=== PATIENT | male | born 1945 | race Caucasian/White ===

== ENCOUNTER 2018-02-22 14:44 | Inpatient (IN) | payer MEDICARE, BC ==
[~2018-02-22] VITALS: Ht 182.9 cm; Wt 95.4 kg
[2018-02-22 15:04] VITALS: BP 156/83; PULSE 87; RESP 16; TEMP 97.1; O2SAT 100
--- NOTE | 2018-02-22 15:44 | RADRPT ---
EXAM DATE/TIME: 02/22/2018 15:26 [facility] COMPARISON: No previous studies available for comparison. INDICATIONS : Pre op right hip. Evalaute for pneumothorax, pneumonia, or communicable diseases. MEDICAL HISTORY : Hypertension. SURGICAL HISTORY : None. ENCOUNTER: Initial ACUITY: 1 day PAIN SCORE: 0/10 LOCATION: Bilateral chest FINDINGS: PA and lateral views of the chest demonstrate the lungs to be symmetrically aerated without evidence of mass, infiltrate or effusion. The cardiomediastinal contours are unremarkable. Osseous structure s are intact. A small apparent retrocardiac hiatal hernia is present and CONCLUSION: No acute disease. Small apparent retrocardiac hiatal hernia. Casper Lorenzana MD on February 22, 2018 at 15:40 Board Certified Radiologist. This report was verified electronically.
[2018-02-22 16:26] LABS: AUTOMATED NEUTROPHIL # 5.5 TH/MM3 (1.8-7.7); BASOPHIL % 0.6 % (0.0-2.0); EOSINOPHIL # 0.3 TH/MM3 (0-0.4); EOSINOPHIL % 4.1 % (0.0-4.0); HEMATOCRIT 37.6 % (39.0-51.0); HEMOGLOBIN 12.7 GM/DL (13.0-17.0); LYMPH % 16.1 % (9.0-44.0); LYMPHOCYTE # 1.3 TH/MM3 (1.0-4.8); MEAN CELL VOLUME 92.9 FL (80.0-100.0); MEAN CORPUSCULAR HEMOGLOBIN 31.3 PG (27.0-34.0); MEAN CORPUSCULAR HGB CONC 33.7 % (32.0-36.0); MONO % 8.4 % (0.0-8.0); MONOCYTE # 0.7 TH/MM3 (0-0.9); NEUT % 70.8 % (16.0-70.0); PLATELET COUNT 251 TH/MM3 (150-450); RED BLOOD COUNT 4.04 MIL/MM3 (4.50-5.90); RED CELL DISTRIBUTION WIDTH 13.3 % (11.6-17.2); WHITE BLOOD COUNT 7.8 TH/MM3 (4.0-11.0)
[2018-02-22 16:27] LABS: INTERNATIONAL NORMALIZED RATIO 1.1 RATIO
[2018-02-22 16:34] LABS: ALBUMIN 3.3 GM/DL (3.4-5.0); AST (GOT) 18 U/L (15-37); BICARBONATE 25.5 MEQ/L (21.0-32.0); BLOOD UREA NITROGEN 41 MG/DL (7-18); CALCIUM 9.9 MG/DL (8.5-10.1); CHLORIDE 106 MEQ/L (98-107); CREATININE 2.04 MG/DL (0.60-1.30); GLOMERULAR FILTRATION RATE 32 ML/MIN (>89); GLUCOSE,RANDOM 91 MG/DL (74-106); SODIUM (NA) 140 MEQ/L (136-145)
[2018-02-22 16:38] LABS: ALKALINE PHOSPHATASE 115 U/L (45-117); ALT (GPT) 51 U/L (12-78); TOTAL BILIRUBIN ADULT 0.8 MG/DL (0.2-1.0); TOTAL PROTEIN 7.4 GM/DL (6.4-8.2)
--- NOTE | 2018-02-22 17:14 | RADRPT ---
EXAM DATE/TIME: 02/22/2018 16:24 1 [facility] COMPARISON: No previous studies available for comparison. INDICATIONS : Patient fell ten days ago injuring right hip. Evaluate for right hip fracture. RADIATION DOSE: 57.08 CTDIvol (mGy) MEDICAL HISTORY : None SURGICAL HISTORY : None. ENCOUNTER: Initial ACUITY: 2 weeks PAIN SCALE: 10/10 LOCATION: Right hip TECHNIQUE: Volumetric scanning of the hip was performed. Using automated exposure control and adjustment of the mA and/or kV according to patient size, radiation dose was kept as low as reasonably achievable to o btain optimal diagnostic quality images. DICOM format image data is available electronically for rev iew and comparison. FINDINGS: There is a mildly impacted right subcapital hip fracture with mild medial displacement of the he ad fragment. The acetabulum is intact. There is a nondisplaced fracture through the lesser trochanter . The pubic rami are intact. There is mild soft tissue swelling and evidence of joint effusion. There is diffuse osteopenia. CONCLUSION: Mildly impacted right subcapital hip fracture. There is a nondisplaced fracture throu gh the lesser trochanter as well. Casper Lorenzana MD on February 22, 2018 at 17:09 Board Certified Radiologist. This report was verified electronically.
[2018-02-22] MEDS ORDERED: MORPHINE SULFATE 4 MG/ML INJ IV PUSH ONE ×2 (17:15→18:30)
[2018-02-22] MEDS ORDERED: ONDANSETRON HCL 4 MG/2 ML VIAL IV PUSH ONE (17:15)
[2018-02-22 17:25] VITALS: BP 165/95; PULSE 75; RESP 16; O2SAT 100
--- NOTE | 2018-02-22 17:41 | PD ---
HPI . Hip injury Chief Complaint: Hip Injury Time Seen by Provider: 17:10 Travel History International Travel<30 days: No Contact w/Intl Traveler<30days: No Traveled to known affect area: No History of Present Illness HPI This patient presents with a chief complaint of right hip injury. He fell while trying to assist his with movement about 10 days ago and landed on the right hip. He has had pain in his hip since that time. He made an appointment with his primary care provider for today who ordered outpatient x- rays. X-rays were positive for a hip fracture. He was subsequently sent to us for further evaluation, admission and definitive treatment. Pain has been constant and is currently rated 10/10. Pain is exacerbated by palpation. PFSH Past Medical History Hx Anticoagulant Therapy: Yes (ASA) Social History Tobacco Use: No Allergies-Medications (Allergen,Severity, Reaction): Coded Allergies: No Known Allergies (Unverified , 02/22/18) Reported Meds & Prescriptions Reported Meds & Active Scripts Active Reported Sodium Bicarbonate 650 Mg Tab 650 Mg PO QID Lipitor (Atorvastatin Calcium) 10 Mg Tab 10 Mg PO HS Tamsulosin (Tamsulosin HCl) 0.4 Mg Cap 0.4 Mg PO HS Levothyroxine (Levothyroxine Sodium) 50 Mcg Tab 50 Mcg PO DAILY Timoptic Opth Drops (Timolol Opth Drops) 0.25 % Soln 1 Drop LEFT EYE BID Claritin (Loratadine) 10 Mg Tablet 10 Mg PO DAILY Men's Multi-Vitamin (Multivitamin) 1 Each Tablet 1 Tab PO DAILY Fiber (Calcium Polycarbophil) 625 Mg Tab 625 Mg PO DAILY Aspirin Adult Low Strength (Aspirin) 81 Mg Tabdr 81 Mg PO DAILY Uloric (Febuxostat) 40 Mg Tab 40 Mg PO DAILY Verapamil ER (Verapamil HCl) 120 Mg Tab 120 Mg PO DAILY Fosinopril (Fosinopril Sodium) 20 Mg Tab 20 Mg PO DAILY Review of Systems Except as stated in HPI: all other systems reviewed are Neg Physical Exam Narrative GENERAL: Awake and alert and in no acute distress. SKIN: Warm and dry. HEAD: Normocephalic/atraumatic. EYES: Pupils are equal. Extraocular movements are intact. NECK: Normal range of motion. RESPIRATORY: Nonlabored respirations. MUSCULOSKELETAL: Right hip is tender in the groin and over the greater trochanter. There is no pain with logrolling of the hip. The leg is not shortened or malrotated. He has peripheral edema. NEUROLOGICAL: Nonfocal. PSYCHIATRIC: Appropriate mood and affect. Data Data Last Documented VS Vital Signs Date Time Temp Pulse Resp B/P (MAP) Pulse Ox O2 Delivery O2 Flow Rate FiO2 02/22/18 17:25 75 16 165/95 (118) 100 Room Air 02/22/18 15:[address] Hip W/O Contrast (02/22/18 ) Complete Blood Count With Diff (02/22/18 15:07) Comprehensive Metabolic Panel (02/22/18 15:07) Coag Profile (02/22/18 15:07) Chest, Pa & Lat (02/22/18 ) Electrocardiogram (02/22/18 ) Morphine Inj (Morphine Inj) (02/22/18 17:15) Ondansetron Inj (Zofran Inj) (02/22/18 17:15) Morphine Inj (Morphine Inj) (02/22/18 18:30) Consult Orthopedic (02/22/18 ) Place In Observation (02/22/18 ) Vital Signs (Adult) Q4H (02/22/18 18:26) Activity Bed Rest (02/22/18 18:26) Auto Body Service Mechanic / Telemetry .CONTINUOUS (02/22/18 18:26) Diet Npo (02/22/18 Dinner) Sodium Chloride 0.9% Flush (Ns Flush) (02/22/18 18:30) Sodium Chloride 0.9% Flush (Ns Flush) (02/22/18 21:00) Ondansetron Inj (Zofran Inj) (02/22/18 18:30) Basic Metabolic Panel (Bmp) (02/23/18 06:00) Complete Blood Count With Diff (02/23/18 06:00) Pt Request For Service (02/22/18 18:26) Case Management Consult (02/22/18 18:26) Naloxone Inj (Narcan Inj) (02/22/18 18:30) Morphine Inj (Morphine Inj) (02/22/18 18:30) Admit Order (Ed Use Only) (02/22/18 18:27) Labs Laboratory Tests Test 02/22/18 15:42 White Blood Count 7.8 TH/MM3 Red Blood Count 4.04 MIL/MM3 Hemoglobin 12.7 GM/DL Hematocrit 37.6 % Mean Corpuscular Volume 92.9 FL Mean Corpuscular Hemoglobin 31.3 PG Mean Corpuscular Hemoglobin Concent 33.7 % Red Cell Distribution Width 13.3 % Platelet Count 251 TH/MM3 Mean Platelet Volume 9.0 FL Neutrophils (%) (Auto) 70.8 % Lymphocytes (%) (Auto) 16.1 % Monocytes (%) (Auto) 8.4 % Eosinophils (%) (Auto) 4.1 % Basophils (%) (Auto) 0.6 % Neutrophils # (Auto) 5.5 TH/MM3 Lymphocytes # (Auto) 1.3 TH/MM3 Monocytes # (Auto) 0.7 TH/MM3 Eosinophils # (Auto) 0.3 TH/MM3 Basophils # (Auto) 0.0 TH/MM3 CBC Comment DIFF FINAL Differential Comment Prothrombin Time 11.0 SEC Prothromb Time International Ratio 1.1 RATIO Activated Partial Thromboplast Time 26.4 SEC Blood Urea Nitrogen 41 MG/DL Creatinine 2.04 MG/DL Random Glucose 91 MG/DL Total Protein 7.4 GM/DL Albumin 3.3 GM/DL Calcium Level 9.9 MG/DL Alkaline Phosphatase 115 U/L Aspartate Amino Transf (AST/SGOT) 18 U/L Alanine Aminotransferase (ALT/SGPT) 51 U/L Total Bilirubin 0.8 MG/DL Sodium Level 140 MEQ/L Potassium Level 4.3 MEQ/L Chloride Level 106 MEQ/L Carbon Dioxide Level 25.5 MEQ/L Anion Gap 9 MEQ/L Estimat Glomerular Filtration Rate 32 ML/MIN MDM Medical Decision Making Medical Screen Exam Complete: Yes Emergency Medical Condition: Yes Differential Diagnosis Differential diagnosis of extremity trauma includes but is not limited to fracture, sprain or strain, dislocation, contusion Narrative Course Patient presents to us for further evaluation of a known right hip fracture. CT>> There is a mildly impacted right subcapital hip fracture with mild medial displacement of the head fragment. The acetabulum is intact. There is a nondisplaced fracture through the lesser trochanter. The pubic rami are intact. There is mild soft tissue swelling and evidence of joint effusion. There is diffuse osteopenia. The patient's pain has been treated with morphine and his nausea with Zofran. Arrangements will be made for this patient to be admitted to the hospital for treatment of this injury. Diagnosis Primary Impression: Closed right hip fracture Qualified Codes: S72.001A - Fracture of unspecified part of neck of right femur, initial encounter for closed fracture Admitting Information Admitting Physician Requests: Admit Scripts Rivaroxaban (Xarelto) 10 Mg Tab 10 MG PO DAILY for Blood Clot Prevention, #14 TAB 0 Refills Prov: Shady Chand/It Desktop Support Specialist PA 02/24/18 Hydrocodone-Acetaminophen (Hydrocodone-Acetaminophen) 10-325 mg Tab 1 TAB PO Q4H Y for PAIN, #40 TAB 0 Refills Prov: Shady Chand/It Desktop Support Specialist PA 02/24/18 Condition: Stable Ariadna Rose MD Feb 22, 2018 17:41
[2018-02-22] MEDS ORDERED: ASPI81TA16 PO (18:02)
[2018-02-22] MEDS ORDERED: FOSI20TA PO (18:02)
[2018-02-22] MEDS ORDERED: FIBE625T10 PO (18:02)
[2018-02-22] MEDS ORDERED: MULT-267 PO (18:02)
[2018-02-22] MEDS ORDERED: VERA1TAB9 PO (18:02)
[2018-02-22] MEDS ORDERED: ULOR40TA PO (18:02)
[2018-02-22] MEDS ORDERED: LIPI10TA PO (18:16)
[2018-02-22] MEDS ORDERED: LEVO50TA4 PO (18:16)
[2018-02-22] MEDS ORDERED: SODI650T PO (18:16)
[2018-02-22] MEDS ORDERED: CLAR10TA7 PO (18:16)
[2018-02-22] MEDS ORDERED: TIMO0.255 LEFT EYE (18:16)
[2018-02-22] MEDS ORDERED: TAMS0.4C4 PO (18:16)
[2018-02-22] MEDS ORDERED: MORPHINE SULFATE 2 MG/ML INJ IV PUSH PRN (18:30)
[2018-02-22] MEDS ORDERED: SODIUM CHLORIDE 0.9% FLUSH 10 ML FLUSH IV FLUSH PRN (18:30)
[2018-02-22] MEDS ORDERED: NALOXONE HCL 0.4 MG/ML AMP IV PUSH PRN (18:30)
[2018-02-22] MEDS ORDERED: ONDANSETRON HCL 4 MG/2 ML VIAL IVP PRN (18:30)
--- NOTE | 2018-02-22 19:58 | HHI.HP ---
[facility] Evie Gomes MD Admission Diagnosis right hip fx Diagnoses: Travel History International Travel<30 Days: No Contact w/Intl Traveler <30 Da: No Traveled to Known Affected Are: No History of Present Illness 42-year-old male with a past medical history significant for hypertension, chronic kidney disease and BPH presents to the emergency department for evaluation of a fall. Approximately 10 days ago he was helping his , who has muscular dystrophy, get out of bed when he fell while attempting to move her onto his right hip, knee and arm. The patient reports that his right knee and right arm are doing much better however he still has significant pain in his right hip. Patient was seen by his primary care provider today who sent him for outpatient x-rays which were positive for right hip fracture. He was sent to the emergency department for further evaluation. Currently he complains of significant right hip pain. Denies any chest pain or shortness of breath. No nausea/vomiting/diarrhea. No abdominal pain. Patient has bilateral lower extremity pitting edema which she has had for approximately the past 2-3 months and has had outpatient workup for. He reports the edema is worse than normal because he has not been able to lie flat for the past 10 days. Review of Systems Except as stated in HPI: all other systems reviewed are Neg Past Family Social History Past Medical History Hypertension chronic kidney disease BPH Past Surgical History None Reported Medications Reported Meds & Active Scripts Active Reported Sodium Bicarbonate 650 Mg Tab 650 Mg PO QID Lipitor (Atorvastatin Calcium) 10 Mg Tab 10 Mg PO HS Tamsulosin (Tamsulosin HCl) 0.4 Mg Cap 0.4 Mg PO HS Levothyroxine (Levothyroxine Sodium) 50 Mcg Tab 50 Mcg PO DAILY Timoptic Opth Drops (Timolol Opth Drops) 0.25 % Soln 1 Drop LEFT EYE BID Claritin (Loratadine) 10 Mg Tablet 10 Mg PO DAILY Men's Multi-Vitamin (Multivitamin) 1 Each Tablet 1 Tab PO DAILY Fiber (Calcium Polycarbophil) 625 Mg Tab 625 Mg PO DAILY Aspirin Adult Low Strength (Aspirin) 81 Mg Tabdr 81 Mg PO DAILY Uloric (Febuxostat) 40 Mg Tab 40 Mg PO DAILY Verapamil ER (Verapamil HCl) 120 Mg Tab 120 Mg PO DAILY Fosinopril (Fosinopril Sodium) 20 Mg Tab 20 Mg PO DAILY Allergies: Coded Allergies: No Known Allergies (Unverified , 02/22/18) Family History Negative for CAD/DM Social History Denies tobacco. Occasional alcohol. Denies illicit drugs. Physical Exam Vital Signs Vital Signs Date Time Temp Pulse Resp B/P (MAP) Pulse Ox O2 Delivery O2 Flow Rate FiO2 02/22/18 17:25 75 16 165/95 (118) 100 Room Air 02/22/18 17:25 100 Room Air 02/22/18 15:04 97.1 87 16 156/83 (107) 100 Physical Exam GENERAL: Elderly, male lying in bed SKIN: No rashes, ecchymoses or lesions. Cool and dry. HEAD: Atraumatic. Normocephalic. No temporal or scalp tenderness. EYES: Pupils equal round and reactive. Extraocular motions intact. No scleral icterus. No injection or drainage. ENT: Nose without bleeding, purulent drainage or septal hematoma. Throat without erythema, tonsillar hypertrophy or exudate. Uvula midline. Airway patent. NECK: Trachea midline. No JVD or lymphadenopathy. Supple, nontender, no meningeal signs. CARDIOVASCULAR: Regular rate and rhythm without murmurs, gallops, or rubs. RESPIRATORY: Clear to auscultation. Breath sounds equal bilaterally. No wheezes , rales, or rhonchi. GASTROINTESTINAL: Abdomen soft, non-tender, nondistended. No hepato-splenomegaly , or palpable masses. No guarding. MUSCULOSKELETAL: Right lower extremity neurovascularly intact. 2+ pulses. 2+ bilateral lower extremity pitting edema. NEUROLOGICAL: Awake and alert. Cranial nerves II through XII intact. Motor and sensory grossly within normal limits. Normal speech. Laboratory Laboratory Tests Test 02/22/18 15:42 White Blood Count 7.8 Red Blood Count 4.04 Hemoglobin 12.7 Hematocrit 37.6 Mean Corpuscular Volume 92.9 Mean Corpuscular Hemoglobin 31.3 Mean Corpuscular Hemoglobin Concent 33.7 Red Cell Distribution Width 13.3 Platelet Count 251 Mean Platelet Volume 9.0 Neutrophils (%) (Auto) 70.8 Lymphocytes (%) (Auto) 16.1 Monocytes (%) (Auto) 8.4 Eosinophils (%) (Auto) 4.1 Basophils (%) (Auto) 0.6 Neutrophils # (Auto) 5.5 Lymphocytes # (Auto) 1.3 Monocytes # (Auto) 0.7 Eosinophils # (Auto) 0.3 Basophils # (Auto) 0.0 CBC Comment DIFF FINAL Differential Comment Prothrombin Time 11.0 Prothromb Time International Ratio 1.1 Activated Partial Thromboplast Time 26.4 Blood Urea Nitrogen 41 Creatinine 2.04 Random Glucose 91 Total Protein 7.4 Albumin 3.3 Calcium Level 9.9 Alkaline Phosphatase 115 Aspartate Amino Transf (AST/SGOT) 18 Alanine Aminotransferase (ALT/SGPT) 51 Total Bilirubin 0.8 Sodium Level 140 Potassium Level 4.3 Chloride Level 106 Carbon Dioxide Level 25.5 Anion Gap 9 Estimat Glomerular Filtration Rate 32 Result Diagram: 02/22/18 1542 02/22/18 1542 Caprini VTE Risk Assessment Caprini VTE Risk Assessment: Mod/High Risk (score >= 2) Caprini Risk Assessment Model Point Value = 1 Point Value = 2 Point Value = 3 Point Value = 5 Age 41-60 Minor surgery BMI > 25 kg/m2 Swollen legs Varicose veins or History of unexplained or recurrent spontaneous Oral contraceptives or hormone replacement Sepsis (< 1 month) Serious lung disease, including pneumonia (< 1 month) Abnormal pulmonary function Acute myocardial infarction Congestive heart failure (< 1 month) History of inflammatory bowel disease Medical patient at bed rest Age 61-74 Arthroscopic surgery Major open surgery (> 45 min) Laparoscopic surgery (> 45 min) Malignancy Confined to bed (> 72 hours) Immobilizing plaster cast Central venous access Age >= 75 History of VTE Family history of VTE Factor V Leiden Prothrombin [id number] Lupus anticoagulant Anticardiolipin antibodies Elevated serum homocysteine Heparin-induced thrombocytopenia Other congenital or acquired thrombophilia Stroke (< 1 month) Elective arthroplasty Hip, pelvis, or leg fracture Acute spinal cord injury (< 1 month) Prophylaxis Regimen Total Risk Factor Score Risk Level Prophylaxis Regimen 0-1 Low Early ambulation 2 Moderate Order ONE of the following: *Sequential Compression Device (SCD) *Heparin 5000 units SQ BID 3-4 Higher Order ONE of the following medications: *Heparin 5000 units SQ TID *Enoxaparin/Lovenox 40 mg SQ daily (WT < 150 kg, CrCl > 30 mL/min) *Enoxaparin/Lovenox 30 mg SQ daily (WT < 150 kg, CrCl > 10-29 mL/min) *Enoxaparin/Lovenox 30 mg SQ BID (WT < 150 kg, CrCl > 30 mL/min) AND/OR *Sequential Compression Device (SCD) 5 or more Highest Order ONE of the following medications: *Heparin 5000 units SQ TID (Preferred with Epidurals) *Enoxaparin/Lovenox 40 mg SQ daily (WT < 150 kg, CrCl > 30 mL/min) *Enoxaparin/Lovenox 30 mg SQ daily (WT < 150 kg, CrCl > 10-29 mL/min) *Enoxaparin/Lovenox 30 mg SQ BID (WT < 150 kg, CrCl > 30 mL/min) AND *Sequential Compression Device (SCD) Assessment and Plan Assessment and Plan Assessment/plan: 1. Right hip fracture CT of the right lower extremity significant for mildly impacted right subcapital hip fracture Dilaudid for pain and orthopedic surgery consulted, appreciate assistance Nothing by mouth 2. Hypertension Continue home fosinopril, verapamil 3. Chronic kidney disease Creatinine 2.04, baseline unknown Gentle IV fluid hydration Monitor renal function 4. Hypothyroidism Continue home Synthroid 5. Lower extremity edema Patient with no history of CHF Reports his edema is worse than baseline secondary to having to sit up in a chair for the past 10 days Monitor FEN Nothing by mouth Electrolytes: Monitor and replete when necessary Holding pharmacologic anticoagulation secondary to anticipation of operative intervention NS at 100 cc/hour Physician Certification 2 Midnight Certification Type: Admission for Inpatient Services Order for Inpatient Services The services are ordered in accordance with Medicare regulations or non- Medicare payer requirements, as applicable. In the case of services not specified as inpatient-only, they are appropriately provided as inpatient services in accordance with the 2-midnight benchmark. Estimated LOS (days): 2 2 days is the estimated time the patient will need to remain in the hospital, assuming treatment plan goals are met and no additional complications. Post-Hospital Plan: Not yet determined Bernadine Iglesias MD Feb 22, 2018 19:58
[2018-02-22 20:37] VITALS: BP 135/81; PULSE 70; RESP 20; TEMP 97.6; O2SAT 100
[2018-02-22] MEDS: TIMOLOL MALEATE 0.25% OPHT SOLN 5 ML BTL LEFT EYE SCH (21:00)
[2018-02-22] MEDS: TAMSULOSIN HCL 0.4 MG CAP PO SCH (22:49)
[2018-02-22] MEDS: SODIUM BICARBONATE 650 MG TAB PO SCH (22:49)
[2018-02-22] MEDS: ATORVASTATIN 10 MG TAB PO SCH (22:49)
[2018-02-22] MEDS: SODIUM CHLOR 0.9% 1000 ML INJ 1,000 ML IV SCH (22:50)
[2018-02-22] MEDS: SODIUM CHLORIDE 0.9% FLUSH 10 ML FLUSH IV FLUSH SCH (22:50)
[2018-02-23] VITALS (7 sets, daily range): BP systolic 124–162; BP diastolic 64–77; PULSE 77–95; RESP 17–20; TEMP 97.1–97.8; O2SAT 96–98
[2018-02-23] MEDS: LEVOTHYROXINE SODIUM 50 MCG TAB PO SCH (04:14)
[2018-02-23] MEDS: SODIUM CHLOR 0.9% 1000 ML INJ 1,000 ML IV SCH ×3 (04:15→16:55)
[2018-02-23 07:01] LABS: AUTOMATED NEUTROPHIL # 4.6 TH/MM3 (1.8-7.7); BASOPHIL % 0.6 % (0.0-2.0); EOSINOPHIL # 0.4 TH/MM3 (0-0.4); EOSINOPHIL % 5.4 % (0.0-4.0); HEMATOCRIT 33.5 % (39.0-51.0); HEMOGLOBIN 11.4 GM/DL (13.0-17.0); LYMPH % 19.6 % (9.0-44.0); LYMPHOCYTE # 1.4 TH/MM3 (1.0-4.8); MEAN CELL VOLUME 93.9 FL (80.0-100.0); MEAN PLATELET VOLUME 8.6 FL (7.0-11.0); MONO % 8.9 % (0.0-8.0); MONOCYTE # 0.6 TH/MM3 (0-0.9); NEUT % 65.5 % (16.0-70.0); PLATELET COUNT 192 TH/MM3 (150-450); RED BLOOD COUNT 3.57 MIL/MM3 (4.50-5.90); RED CELL DISTRIBUTION WIDTH 13.3 % (11.6-17.2)
[2018-02-23 07:22] LABS: BICARBONATE 23.6 MEQ/L (21.0-32.0); CALCIUM 9.3 MG/DL (8.5-10.1); CREATININE 1.76 MG/DL (0.60-1.30)
[2018-02-23] MEDS: TIMOLOL MALEATE 0.25% OPHT SOLN 5 ML BTL LEFT EYE SCH ×2 (08:56→21:30)
[2018-02-23] MEDS: VERAPAMIL HCL 120 MG SUSTAINED RELEASE TAB PO SCH (08:56)
[2018-02-23] MEDS: CALCIUM POLYCARBOPHIL 625 MG TAB PO SCH (08:56)
[2018-02-23] MEDS: LISINOPRIL 20 MG TAB PO SCH (08:57)
[2018-02-23] MEDS: SODIUM BICARBONATE 650 MG TAB PO SCH ×4 (08:57→21:32)
[2018-02-23] MEDS: HYDROmorphone HCL PF 2 MG/ML VIAL IV PUSH PRN (09:02)
[2018-02-23] MEDS: SODIUM CHLORIDE 0.9% FLUSH 10 ML FLUSH IV FLUSH SCH ×2 (09:07→21:33)
--- NOTE | 2018-02-23 10:23 | PD.CONS ---
HPI Service [facility] Consult Requested By Reason for Consult Right femoral neck fracture Primary Care Physician Evie Gomes MD Admission Diagnosis right hip fx Diagnoses: Chief Complaint: Right hip pain History of Present Illness 72-year-old male who presents to the emergency department for evaluation of a fall. Approximately 10 days ago he was helping his , who has muscular dystrophy, get out of bed when he fell while attempting to move her onto his right hip, knee and arm. The patient reports that his right knee and right arm are doing much better however he still has significant pain in his right hip. Patient was seen by his primary care provider today who sent him for outpatient x-rays which were positive for right hip fracture. He was sent to the emergency department for further evaluation. Currently he complains of significant right hip pain. Denies any chest pain or shortness of breath. No nausea/vomiting/diarrhea. No abdominal pain. Patient has bilateral lower extremity pitting edema which she has had for approximately the past 2-3 months and has had outpatient workup for. Review of Systems Constitutional: DENIES: Fever Endocrine: DENIES: Polyuria Eyes: DENIES: Blurred vision Ears, nose, mouth, throat: DENIES: Throat pain Respiratory: DENIES: Cough Cardiovascular: DENIES: Chest pain Gastrointestinal: DENIES: Abdominal pain Genitourinary: DENIES: Urinary incontinence Musculoskeletal: COMPLAINS OF: Joint pain, Joint Swelling Integumentary: DENIES: Rash Hematologic/lymphatic: DENIES: Bruising Immunologic/allergic: DENIES: Eczema Neurologic: DENIES: Abnormal gait Psychiatric: DENIES: Anxiety Past Family Social History Past Medical History Hypertension chronic kidney disease BPH Past Surgical History None Reported Medications see full chart. Allergies: Coded Allergies: No Known Allergies (Unverified , 02/22/18) Active Ordered Medications Current Medications Medications (Trade) Dose Ordered Sig/[place] Route Start Time Stop Time Status Last Admin (NS Flush) 2 ml UNSCH PRN IV FLUSH 02/22/18 18:30 (NS Flush) 2 ml BID IV FLUSH 02/22/18 21:00 02/22/18 22:50 (Zofran Inj) 4 mg Q6H PRN IVP 02/22/18 18:30 (Narcan Inj) 0.4 mg UNSCH PRN IV PUSH 02/22/18 18:30 (Dilaudid Pf Inj) 1 mg Q3H PRN IV PUSH 02/22/18 20:00 02/23/18 09:02 (Lipitor) 10 mg HS PO 02/22/18 21:00 02/22/18 22:49 (Fiber Con) 625 mg DAILY PO 02/23/18 09:00 02/23/18 08:56 (Prinivil) 20 mg DAILY PO 02/23/18 09:00 02/23/18 08:57 (Synthroid) 50 mcg DAILY@0600 PO 02/23/18 06:00 02/23/18 04:14 (Sodium Bicarbonate) 650 mg QID PO 02/22/18 21:00 02/23/18 08:57 (Flomax) 0.4 mg HS PO 02/22/18 21:00 02/22/18 22:49 (Timoptic 0.25% Opth Soln) 1 drop BID LEFT EYE 02/22/18 21:00 02/23/18 08:56 (Isoptin Sr) 120 mg DAILY PO 02/23/18 09:00 02/23/18 08:56 Sodium Chloride 1,000 ml @ 100 mls/hr Q10H IV 02/22/18 20:00 02/23/18 08:52 Reported Meds & Active Scripts Active Reported Sodium Bicarbonate 650 Mg Tab 650 Mg PO QID Lipitor (Atorvastatin Calcium) 10 Mg Tab 10 Mg PO HS Tamsulosin (Tamsulosin HCl) 0.4 Mg Cap 0.4 Mg PO HS Levothyroxine (Levothyroxine Sodium) 50 Mcg Tab 50 Mcg PO DAILY Timoptic Opth Drops (Timolol Opth Drops) 0.25 % Soln 1 Drop LEFT EYE BID Claritin (Loratadine) 10 Mg Tablet 10 Mg PO DAILY Men's Multi-Vitamin (Multivitamin) 1 Each Tablet 1 Tab PO DAILY Fiber (Calcium Polycarbophil) 625 Mg Tab 625 Mg PO DAILY Aspirin Adult Low Strength (Aspirin) 81 Mg Tabdr 81 Mg PO DAILY Uloric (Febuxostat) 40 Mg Tab 40 Mg PO DAILY Verapamil ER (Verapamil HCl) 120 Mg Tab 120 Mg PO DAILY Fosinopril (Fosinopril Sodium) 20 Mg Tab 20 Mg PO DAILY Family History Negative for CAD/DM Social History Denies tobacco. Occasional alcohol. Denies illicit drugs. Physical Exam Vital Signs Vital Signs Date Time Temp Pulse Resp B/P (MAP) Pulse Ox O2 Delivery O2 Flow Rate FiO2 02/23/18 08:00 97.8 79 19 124/70 (88) 96 02/23/18 04:00 97.8 84 20 135/75 (95) 96 02/23/18 00:00 97.7 77 20 144/71 (95) 96 02/22/18 20:37 97.6 70 20 135/81 (99) 100 02/22/18 20:05 02/22/18 17:25 75 16 165/95 (118) 100 Room Air 02/22/18 17:25 100 Room Air 02/22/18 15:04 97.1 87 16 156/83 (107) 100 Physical Exam Awake, alert, no acute distress Normocephalic Pupils equal No JVD Moist mucous membranes Nonlabored respirations Regular rate Soft nontender abdomen BUE: BLE: No rash Normal affect Laboratory Laboratory Tests Test 02/22/18 15:42 02/23/18 06:45 White Blood Count 7.8 7.0 Red Blood Count 4.04 3.57 Hemoglobin 12.7 11.4 Hematocrit 37.6 33.5 Mean Corpuscular Volume 92.9 93.9 Mean Corpuscular Hemoglobin 31.3 32.0 Mean Corpuscular Hemoglobin Concent 33.7 34.0 Red Cell Distribution Width 13.3 13.3 Platelet Count 251 192 Mean Platelet Volume 9.0 8.6 Neutrophils (%) (Auto) 70.8 65.5 Lymphocytes (%) (Auto) 16.1 19.6 Monocytes (%) (Auto) 8.4 8.9 Eosinophils (%) (Auto) 4.1 5.4 Basophils (%) (Auto) 0.6 0.6 Neutrophils # (Auto) 5.5 4.6 Lymphocytes # (Auto) 1.3 1.4 Monocytes # (Auto) 0.7 0.6 Eosinophils # (Auto) 0.3 0.4 Basophils # (Auto) 0.0 0.0 CBC Comment DIFF FINAL DIFF FINAL Differential Comment Prothrombin Time 11.0 Prothromb Time International Ratio 1.1 Activated Partial Thromboplast Time 26.4 Blood Urea Nitrogen 41 36 Creatinine 2.04 1.76 Random Glucose 91 68 Total Protein 7.4 Albumin 3.3 Calcium Level 9.9 9.3 Alkaline Phosphatase 115 Aspartate Amino Transf (AST/SGOT) 18 Alanine Aminotransferase (ALT/SGPT) 51 Total Bilirubin 0.8 Sodium Level 140 144 Potassium Level 4.3 4.4 Chloride Level 106 110 Carbon Dioxide Level 25.5 23.6 Anion Gap 9 10 Estimat Glomerular Filtration Rate 32 38 Result Diagram: 02/23/18 0645 02/23/18 0645 Imaging Last 48 hours Impressions Lower Extremity CT 02/22/18 0000 Signed Impressions: Service Date/Time: Thursday, February 22, 2018 16:24 - CONCLUSION: Mildly impacted right subcapital hip fracture. There is a nondisplaced fracture through the lesser trochanter as well. Casper Lorenzana MD Chest X-Ray 02/22/18 0000 Signed Impressions: Service Date/Time: Thursday, February 22, 2018 15:26 - CONCLUSION: No acute disease. Small apparent retrocardiac hiatal hernia. Casper Lorenzana MD Assessment & Plan Assessment and Plan Patient is a 72-year-old male with fall 10 days ago with a right subcapital femoral neck fracture Management were discussed with the patient. Recommendation for surgical intervention the form of right hip hemiarthroplasty given his displaced subcapital femoral neck fracture. Risks of surgery including but not limited to : Infection, hardware malposition or failure, hip instability with possible dislocation, neurovascular injury, periprosthetic fracture, possible need persistent hip pain and or weakness, and other unforeseen complications were all discussed with the patient. At this time he is nothing by mouth for possible surgery later today. Ashanti Velarde MD Feb 23, 2018 10:23
--- NOTE | 2018-02-23 10:41 | HHI.PR ---
Subjective Remarks in no acute distress. pain is controlled. no new complaints. Objective Vitals Vital Signs Date Time Temp Pulse Resp B/P (MAP) Pulse Ox O2 Delivery O2 Flow Rate FiO2 02/23/18 08:00 97.8 79 19 124/70 (88) 96 02/23/18 04:00 97.8 84 20 135/75 (95) 96 02/23/18 00:00 97.7 77 20 144/71 (95) 96 02/22/18 20:37 97.6 70 20 135/81 (99) 100 02/22/18 20:05 02/22/18 17:25 75 16 165/95 (118) 100 Room Air 02/22/18 17:25 100 Room Air 02/22/18 15:04 97.1 87 16 156/83 (107) 100 I/O 02/22/18 02/22/18 02/22/18 02/23/18 02/23/18 02/23/18 07:00 15:00 23:00 07:00 15:00 23:00 Intake Total 0 ml 120 ml Output Total 500 ml 0 ml Balance -500 ml 0 ml 120 ml Intake Oral 0 ml 120 ml Output Urine Total 500 ml 0 ml Result Diagram: 02/23/18 0645 02/23/18 0645 Imaging Last Impressions Lower Extremity CT 02/22/18 0000 Signed Impressions: Service Date/Time: Thursday, February 22, 2018 16:24 - CONCLUSION: Mildly impacted right subcapital hip fracture. There is a nondisplaced fracture through the lesser trochanter as well. Casper Lorenzana MD Chest X-Ray 02/22/18 0000 Signed Impressions: Service Date/Time: Thursday, February 22, 2018 15:26 - CONCLUSION: No acute disease. Small apparent retrocardiac hiatal hernia. Casper Lorenzana MD Objective Remarks GENERAL: This is a well-nourished, well-developed patient, in no apparent distress. CARDIOVASCULAR: Regular rate and regular rhythm without murmurs, gallops, or rubs. RESPIRATORY: Clear to auscultation. Breath sounds equal bilaterally. No wheezes , rales, or rhonchi. GASTROINTESTINAL: Abdomen soft, non-tender, nondistended. Normal, active bowel sounds MUSCULOSKELETAL: Extremities without clubbing, cyanosis, or edema. NEURO: Alert & Oriented x4 to person, place, time, situation. Moves all ext x4 Medications and IVs Inpatient Medications Atorvastatin Calcium (Lipitor) 10 mg HS PO Last administered on 02/22/18 22:49 ; Start 02/22/18 at 21:00 Calcium Polycarbophil (Fiber Con) 625 mg DAILY PO Last administered on 08:56; Start 02/23/18 at 09:00 Hydromorphone HCl (Dilaudid Pf Inj) 1 mg Q3H PRN IV PUSH PAIN 6-10 Last administered on 02/23/18 09:02; Start 02/22/18 at 20:00 Levothyroxine Sodium (Synthroid) 50 mcg DAILY@0600 PO Last administered on 02/23 04:14; Start 02/23/18 at 06:00 Lisinopril (Prinivil) 20 mg DAILY PO Last administered on 02/23/18 08:57; Start 02/23/18 at 09:00 Morphine Sulfate (Morphine Inj) 2 mg Q3H PRN IV PUSH pain >5; Start 02/22/18 at 18:30; Stop 02/22/18 at 19:35; Status DC Naloxone HCl (Narcan Inj) 0.4 mg UNSCH PRN IV PUSH SEE LABEL COMMENTS; Start at 18:30 Ondansetron HCl (Zofran Inj) 4 mg Q6H PRN IVP NAUSEA OR VOMITING; Start at 18:30 Sodium Bicarbonate (Sodium Bicarbonate) 650 mg QID PO Last administered on 02/23 08:57; Start 02/22/18 at 21:00 Sodium Chloride 1,000 ml @ 100 mls/hr Q10H IV Last administered on 02/23/18 08:52; Start 02/22/18 at 20:00 Sodium Chloride (NS Flush) 2 ml BID IV FLUSH Last administered on 02/22/18 22: 50; Start 02/22/18 at 21:00 Tamsulosin HCl (Flomax) 0.4 mg HS PO Last administered on 02/22/18 22:49; Start 02/22/18 at 21:00 Timolol Maleate (Timoptic 0.25% Opth Soln) 1 drop BID LEFT EYE Last administered on 3/27/18at 08:56; Start 02/22/18 at 21:00 Verapamil HCl (Isoptin Sr) 120 mg DAILY PO Last administered on 02/23/18at 08: 56; Start 02/23/18 at 09:00 A/P Assessment and Plan A/P 1. Right hip fracture CT of the right lower extremity significant for mildly impacted right subcapital hip fracture continue with pain management. ortho consulted and plan for surgical repair today. 2. Hypertension Continue home fosinopril, verapamil 3. Chronic kidney disease Gentle IV fluid hydration Monitor renal function 4. Hypothyroidism Continue home Synthroid DVT prophylaxis; post-op/ per ortho. Lee Alba MD Feb 23, 2018 10:41
[2018-02-23] MEDS ORDERED: PROPOFOL 200 MG/20 ML AMP IV ONE (12:00)
[2018-02-23] MEDS ORDERED: ROCURONIUM INJ 50 MG/5 ML SYRINGE IV PUSH ONE (12:00)
[2018-02-23] MEDS ORDERED: LACTATED RINGER'S 1000 ML INJ 1,000 ML IV ONE (12:00)
[2018-02-23] MEDS ORDERED: GLYCOPYRROLATE 1 MG/5 ML SYRINGE IV PUSH ONE (12:00)
[2018-02-23] MEDS ORDERED: NEOSTIGMINE 5 MG/5 ML SYRINGE IV PUSH ONE (12:00)
[2018-02-23] MEDS ORDERED: DEXAMETHASONE SOD PHOS 4 MG/ML VIAL IV ONE (12:00)
[2018-02-23] MEDS ORDERED: ceFAZolin INJ 1,000 MG VIAL IV ONE ×2 (12:00→15:23)
[2018-02-23] MEDS ORDERED: LIDOCAINE HCL 1% PF 5 ML SYRINGE OTHER ONE (12:00)
[2018-02-23] MEDS ORDERED: ePHEDrine/NS 25 MG/5 ML SYRINGE IV ONE (12:00)
[2018-02-23] MEDS ORDERED: SODIUM CHLOR 0.9% 250 ML INJ 250 ML IV ONE (12:00)
--- NOTE | 2018-02-23 13:02 | PD.ORT.PN ---
Subjective Subjective Remarks s/p fall rigiht hip pain Objective Vitals Vital Signs Date Time Temp Pulse Resp B/P (MAP) Pulse Ox O2 Delivery O2 Flow Rate FiO2 02/23/18 08:00 97.8 79 19 124/70 (88) 96 02/23/18 08:00 81 02/23/18 04:00 97.8 84 20 135/75 (95) 96 02/23/18 00:00 97.7 77 20 144/71 (95) 96 02/22/18 20:37 97.6 70 20 135/81 (99) 100 02/22/18 20:05 02/22/18 17:25 75 16 165/95 (118) 100 Room Air 02/22/18 17:25 100 Room Air 02/22/18 15:04 97.1 87 16 156/83 (107) 100 I/O 02/22/18 02/22/18 02/22/18 02/23/18 02/23/18 02/23/18 07:00 15:00 23:00 07:00 15:00 23:00 Intake Total 0 ml 120 ml Output Total 500 ml 0 ml Balance -500 ml 0 ml 120 ml Intake Oral 0 ml 120 ml Output Urine Total 500 ml 0 ml Result Diagram: 02/23/18 0645 02/23/18 0645 Other Results Laboratory Tests Test 02/22/18 15:42 Prothromb Time International Ratio 1.1 RATIO Prothrombin Time 11.0 SEC (9.8-11.6) Objective Remarks RLE: pain with motin. nvi Assessment & Plan Assessment and Plan Patient is a 72-year-old male with fall 10 days ago with a right subcapital femoral neck fracture Management were discussed with the patient. Recommendation for surgical intervention the form of right hip hemiarthroplasty given his displaced subcapital femoral neck fracture. Risks of surgery including but not limited to : Infection, hardware malposition or failure, hip instability with possible dislocation, neurovascular injury, periprosthetic fracture, possible need persistent hip pain and or weakness, and other unforeseen complications were all discussed with the patient. At this time he is nothing by mouth for possible surgery later today. Shady Chand/Income Tax Analyst PA Feb 23, 2018 13:02
[2018-02-23] MEDS ORDERED: VANCOMYCIN HCL 1000 MG VIAL ONE (13:56)
[2018-02-23] MEDS ORDERED: GENTAMICIN SULFATE 80 MG/2 ML VIAL ONE (13:56)
--- NOTE | 2018-02-23 14:44 | PD.OP ---
cc: Trent Goldsmith MD Operative Report Date of Surgery: Feb 23, 2018 Preoperative Diagnosis: Displaced right femoral neck fracture Postoperative Diagnosis: Procedure: Right hip zoe-arthroplasty Anesthesia: Gen. Surgeon: Trent Goldsmith Spool Tender(s): Kunal Aggarwal PA-C The surgical procedure was assisted by my physician language assistant. My P.A. presence was necessary throughout this case for the manipulation and positioning of the surgical extremity. My P.A. was assisting me throughout the duration of this procedure. The skill set of a physician language assistant was medically necessary to complete this procedure. During the surgical case the drivability technician was working at the back table and the physician language assistant was directly assisting me. Operation and Findings: PLAN OF ACTIVITY Weight bear as tolerated. IMPLANTS USED DePuy Corail size [15] stem with size [54] bipolar head and [+5] neck. DRAIN: 7 mm David-Juárez drain DETAILS OF PROCEDURE This patient was brought into the operating room and placed on the OR table. The patient was given anesthesia. The patient received IV antibiotics. The patient was then placed in lateral decubitus position. The hip and leg were prepped with alcohol, followed by Hibiclens and draped in a usual sterile fashion. Clean air was used for this procedure. Time out procedure was performed. The procedure began with a 5 inch incision over the posterolateral hip. The subcutaneous tissue was dissected with the Bovie. The iliotibial band were split in line with fibers. The Charnley retractor was placed. The piriformis and external rotators were released from the femur and tagged with a #1 Vicryl suture. The capsule is now incised and tagged with #1 Vicryl. The femoral neck fracture was now visualized. A corkscrew was now used to remove the femoral head. The femoral head was sized and measured. Soft tissue was now protected. The hip skid was placed underneath the femoral neck. An oscillating saw was used to make a femoral neck cut. At this point attention was turned to preparation of the proximal femur. A box osteotome was used to remove the lateral cortex of the femoral neck. The T- handle reamer was used to open the femoral canal. Next, the canal was broached. A lateralizing reamer was used to help lateralize the prosthesis. At this point a trial head and neck were placed. The hip was reduced. The patient was found to have excellent stability with good range of motion. Trial components were removed. Soft tissue and bone were thoroughly irrigated. A Corail stem was now opened. The stem was now impacted into the proximal femur. Care was taken to keep appropriate anteversion. The head and neck were now impacted onto the stem. The hip was again reduced. The hip was found to have good range of motion and good stability. Leg lengths were clinically equal. The wound was thoroughly irrigated. The capsule, piriformis and iliotibial band were closed with #1 Vicryl. Subcutaneous tissue was closed with 3-0 Vicryl. The skin was closed with vaishali. A sterile dressing was applied with Primapore. The patient was placed into a knee immobilizer. The patient was awakened and transferred to the recovery room in stable condition. Needle and sponge counts were correct. Trent Goldsmith MD Feb 23, 2018 14:44
[2018-02-23] MEDS ORDERED: ERGOCALCIFEROL (VIT D2) 50,000 UNIT CAP PO ONE (14:45)
[2018-02-23] MEDS ORDERED: TRANEXAMIC ACID IV SCH (14:45)
[2018-02-23] MEDS ORDERED: SODIUM CHLORIDE 0.9% IV SCH (14:45)
[2018-02-23] MEDS ORDERED: Post-op Orders (for Pharmacy) XX ONE (14:45)
[2018-02-23] MEDS ORDERED: VANCOMYCIN HCL 1000 MG VIAL IV ONE (15:23)
--- NOTE | 2018-02-23 15:51 | EKG ---
Date Performed: 02/22/2018 Time Performed: 15:37:42 PTAGE: 72 years EKG: Sinus rhythm BORDERLINE LEFT AXIS DEVIATION BORDERLINE ECG NO PREVIOUS TRACING Possible interior wall myocardial infarction - age undetermined DOCTOR: Dustin Garvin Interpretating Date/Time 02/23/2018 15:48:17
[2018-02-23] MEDS ORDERED: DO NOT ADM ANY ANTICOAGULANT DRUGS PRN (16:03)
[2018-02-23] MEDS ORDERED: HYDROmorphone HCL PF 2 MG/ML VIAL ONE (16:10)
[2018-02-23] MEDS ORDERED: HYDROmorphone HCL PF 2 MG/ML VIAL IV ONE (16:10)
[2018-02-23] MEDS ORDERED: MIDAZOLAM HCL 2 MG/2 ML VIAL ONE (16:12)
[2018-02-23] MEDS ORDERED: *PROMETHAZINE 25 MG/ML VIAL PERIprocedural use ONLY ONE (16:26)
[2018-02-23] MEDS ORDERED: *MEPERIDINE 25 MG INJ VIAL PERIprocedural Use ONLY ONE (16:52)
--- NOTE | 2018-02-23 17:35 | RADRPT ---
EXAM DATE/TIME: 02/23/2018 16:18 [facility] COMPARISON: No previous studies available for comparison. INDICATIONS : Post op right hip replacement MEDICAL HISTORY : right hip fracture SURGICAL HISTORY : right hip replaced ENCOUNTER: Subsequent ACUITY: 2 days PAIN SCORE: 10/10 LOCATION: Right hip FINDINGS: Postoperative right total hip replacement. Skin vaishali present laterally. There is air in the soft t issues. Drain present. CONCLUSION: 1. Postoperative right total hip replacement. Normal alignment. Brian Lee MD on February 23, 2018 at 17:31 Board Certified Radiologist. This report was verified electronically.
[2018-02-23] MEDS ORDERED: ceFAZolin 2 GM PREMIX 50 ML IV SCH (21:00)
[2018-02-23] MEDS: TAMSULOSIN HCL 0.4 MG CAP PO SCH (21:32)
[2018-02-23] MEDS: ATORVASTATIN 10 MG TAB PO SCH (21:32)
[2018-02-23] MEDS: ACETAMINOPHEN/HYDROcodone 325 MG/7.5 MG TAB PO PRN (21:33)
[2018-02-23] MEDS: CEFAZOLIN INJ 2,000 MG in SODIUM CHLORIDE 0.9% INJ 100 ML IV SCH (22:27)
[2018-02-24] VITALS (9 sets, daily range): BP systolic 116–140; BP diastolic 61–79; PULSE 76–87; RESP 18; TEMP 97.4–98.2; O2SAT 95–99
[2018-02-24] MEDS: ACETAMINOPHEN/HYDROcodone 325 MG/7.5 MG TAB PO PRN ×7 (01:04→21:52)
[2018-02-24] MEDS: CEFAZOLIN INJ 2,000 MG in SODIUM CHLORIDE 0.9% INJ 100 ML IV SCH ×2 (04:03→10:37)
[2018-02-24] MEDS: LEVOTHYROXINE SODIUM 50 MCG TAB PO SCH (05:33)
[2018-02-24] MEDS ORDERED: WALKER/ADULT/FO1 MIS (06:45)
[2018-02-24] MEDS ORDERED: XARE10TA PO (06:45)
[2018-02-24] MEDS ORDERED: HYDR-3583 PO (06:45)
[2018-02-24 06:52] LABS: HEMATOCRIT 31.4 % (39.0-51.0); HEMOGLOBIN 10.7 GM/DL (13.0-17.0)
--- NOTE | 2018-02-24 07:11 | PD.ORT.PN ---
Subjective Subjective Remarks POD 1 status post right hip hemiarthroplasty Doing well. Does report pain in the right hip when he attempts to move. States the pain medicine is not quite controlling his pain. Objective Vitals Vital Signs Date Time Temp Pulse Resp B/P (MAP) Pulse Ox O2 Delivery O2 Flow Rate FiO2 02/24/18 04:22 98.2 78 18 116/62 (80) 98 02/24/18 03:54 79 02/24/18 00:00 85 02/23/18 23:49 97.7 94 18 130/64 (86) 97 02/23/18 21:35 95 02/23/18 18:35 97.1 78 17 134/72 (92) 98 02/23/18 18:10 75 16 96 Nasal Cannula 2 02/23/18 18:00 97.6 76 16 126/68 (87) 96 Nasal Cannula 2 02/23/18 17:30 75 15 127/69 (88) 95 Nasal Cannula 2 02/23/18 17:00 75 15 130/70 (90) 95 Nasal Cannula 2 02/23/18 16:45 74 15 132/74 (93) 95 Nasal Cannula 2 02/23/18 16:30 82 15 131/76 (94) 100 Nasal Cannula 3 02/23/18 16:15 95 15 132/75 (94) 99 Nasal Cannula 3 02/23/18 16:00 97.3 100 15 131/77 (95) 98 Nasal Cannula 3 02/23/18 12:00 97.3 94 20 162/77 (105) 97 02/23/18 08:00 97.8 79 19 124/70 (88) 96 02/23/18 08:00 81 I/O 02/23/18 02/23/18 02/23/18 02/24/18 02/24/18 02/24/18 07:00 15:00 23:00 07:00 15:00 23:00 Intake Total 0 ml 120 ml 1450 ml 360 ml Output Total 0 ml 315 ml 500 ml Balance 0 ml 120 ml 1135 ml -140 ml Intake Oral 0 ml 120 ml 360 ml IV Total 150 ml Other 1300 ml Output Urine Total 0 ml 500 ml Drainage Total 15 ml Estimated Blood Loss 300 ml # Voids 0 # Bowel Movements 0 Result Diagram: 02/24/18 0430 02/23/18 0645 Imaging Last 24 hours Impressions Hip and Pelvis X-Ray 02/23/18 1441 Signed Impressions: Service Date/Time: Friday, February 23, 2018 16:18 - CONCLUSION: 1. Postoperative right total hip replacement. Normal alignment. Brian Lee MD Objective Remarks RLE: Dressings clean and dry. Intact. + knee brace. Full sensation distally with good extension of his ankle and toes. Drain has minimal drainage. Assessment & Plan Assessment and Plan 1) Right Hip Hemiarthroplasty - POD 1 -WBAT -Posterior hip precautions -Knee brace while in bed -Discontinue drain today -Daily dressing changes with Primapore on postop day 2 -Case management for rehab placement -DVT prophylaxis -Follow-up with Dr. Albarado or his PA in 2 weeks Shady Chand PA/Instructor Private PA Feb 24, 2018 07:11
[2018-02-24] MEDS: LISINOPRIL 20 MG TAB PO SCH (07:32)
[2018-02-24] MEDS: CHOLECALCIFEROL (VIT D3) 5000 UNIT CAP PO SCH (07:32)
[2018-02-24] MEDS: VERAPAMIL HCL 120 MG SUSTAINED RELEASE TAB PO SCH (07:32)
[2018-02-24] MEDS: SODIUM CHLORIDE 0.9% FLUSH 10 ML FLUSH IV FLUSH SCH ×2 (07:35→21:00)
[2018-02-24] MEDS: TIMOLOL MALEATE 0.25% OPHT SOLN 5 ML BTL LEFT EYE SCH ×2 (07:37→20:58)
[2018-02-24] MEDS: CALCIUM POLYCARBOPHIL 625 MG TAB PO SCH (09:00)
[2018-02-24] MEDS: SODIUM BICARBONATE 650 MG TAB PO SCH ×4 (10:41→20:58)
--- NOTE | 2018-02-24 11:25 | HHI.PR ---
Subjective Remarks in no acute distress. complaining of pain to the right hip. Objective Vitals Vital Signs Date Time Temp Pulse Resp B/P (MAP) Pulse Ox O2 Delivery O2 Flow Rate FiO2 02/24/18 08:32 18 02/24/18 08:00 98.0 84 18 121/69 (86) 96 02/24/18 04:22 98.2 78 18 116/62 (80) 98 02/24/18 03:54 79 02/24/18 00:00 85 02/23/18 23:49 97.7 94 18 130/64 (86) 97 02/23/18 21:35 95 02/23/18 18:35 97.1 78 17 134/72 (92) 98 02/23/18 18:10 75 16 96 Nasal Cannula 2 02/23/18 18:00 97.6 76 16 126/68 (87) 96 Nasal Cannula 2 02/23/18 17:30 75 15 127/69 (88) 95 Nasal Cannula 2 02/23/18 17:00 75 15 130/70 (90) 95 Nasal Cannula 2 02/23/18 16:45 74 15 132/74 (93) 95 Nasal Cannula 2 02/23/18 16:30 82 15 131/76 (94) 100 Nasal Cannula 3 02/23/18 16:15 95 15 132/75 (94) 99 Nasal Cannula 3 02/23/18 16:00 97.3 100 15 131/77 (95) 98 Nasal Cannula 3 02/23/18 12:00 97.3 94 20 162/77 (105) 97 I/O 02/23/18 02/23/18 02/23/18 02/24/18 02/24/18 02/24/18 07:00 15:00 23:00 07:00 15:00 23:00 Intake Total 0 ml 120 ml 1450 ml 360 ml Output Total 0 ml 315 ml 500 ml Balance 0 ml 120 ml 1135 ml -140 ml Intake Oral 0 ml 120 ml 360 ml IV Total 150 ml Other 1300 ml Output Urine Total 0 ml 500 ml Drainage Total 15 ml Estimated Blood Loss 300 ml # Voids 0 # Bowel Movements 0 Result Diagram: 02/24/18 0430 02/23/18 0645 Imaging Last Impressions Hip and Pelvis X-Ray 02/23/18 1441 Signed Impressions: Service Date/Time: Friday, February 23, 2018 16:18 - CONCLUSION: 1. Postoperative right total hip replacement. Normal alignment. Brian Lee MD Lower Extremity CT 02/22/18 0000 Signed Impressions: Service Date/Time: Thursday, February 22, 2018 16:24 - CONCLUSION: Mildly impacted right subcapital hip fracture. There is a nondisplaced fracture through the lesser trochanter as well. Casper Lorenzana MD Chest X-Ray 02/22/18 0000 Signed Impressions: Service Date/Time: Thursday, February 22, 2018 15:26 - CONCLUSION: No acute disease. Small apparent retrocardiac hiatal hernia. Casper Lorenzana MD Objective Remarks GENERAL: This is a well-nourished, well-developed patient, in no apparent distress. CARDIOVASCULAR: Regular rate and regular rhythm without murmurs, gallops, or rubs. RESPIRATORY: Clear to auscultation. Breath sounds equal bilaterally. No wheezes , rales, or rhonchi. GASTROINTESTINAL: Abdomen soft, non-tender, nondistended. Normal, active bowel sounds MUSCULOSKELETAL: Extremities without clubbing, cyanosis, or edema. NEURO: Alert & Oriented x4 to person, place, time, situation. Moves all ext x4 Procedures right hip hemiarthroplasty Medications and IVs Inpatient Medications Acetaminophen/ Hydrocodone Bitart ([place] 7.5-325 Mg) 1 tab Q3H PRN PO PAIN 3< 10 Last administered on 02/24/18at 10:37; Start 02/23/18 at 14:45 Atorvastatin Calcium (Lipitor) 10 mg HS PO Last administered on 02/23/18at 21:32 ; Start 02/22/18 at 21:00 Calcium Polycarbophil (Fiber Con) 625 mg DAILY PO Last administered on at 08:56; Start 02/23/18 at 09:00 Cefazolin Sodium (Ancef Inj) 2,000 mg ONCE ONCE IV Last administered on at 14:50; Start 02/23/18 at 15:23; Stop 02/23/18 at 15:24; Status DC Cefazolin Sodium 2000 mg/Sodium Chloride 120 ml @ 100 mls/hr Q6H IV Last administered on 02/24/18at 10:37; Start 02/23/18 at 22:00; Stop 02/24/18 at 11:11 ; Status DC Cefazolin Sodium/ Dextrose 50 ml @ 100 mls/hr Q6H IV ; Start 02/23/18 at 21:00 ; Stop 02/23/18 at 22:00; Status DC Cholecalciferol (Vitamin D3) 5,000 units DAILY PO Last administered on at 07:32; Start 02/24/18 at 09:00 Enoxaparin Sodium (Lovenox Inj) 30 mg Q24H SQ ; Start 02/24/18 at 15:00 Ergocalciferol (Drisdol) 50,000 units ONCE ONCE PO ; Start 02/23/18 at 14:45; Stop 02/23/18 at 14:49; Status DC Hydromorphone HCl (Dilaudid Pf Inj) 1 mg ONCE ONCE IV ; Start 02/23/18 at 16:10 ; Stop 02/23/18 at 16:45; Status DC Levothyroxine Sodium (Synthroid) 50 mcg DAILY@0600 PO Last administered on 02/24at 05:33; Start 02/23/18 at 06:00 Lisinopril (Prinivil) 20 mg DAILY PO Last administered on 02/24/18at 07:32; Start 02/23/18 at 09:00 Miscellaneous Information ALL NURSING DEPARTME... UNSCH PRN .XX SEE LABEL COMMENTS; Start 02/23/18 at 16:03; Stop 02/24/18 at 16:02 Miscellaneous Information (Post-op Orders (for Pharmacy)) STAT ONCE XX ; Start 02/23/18 at 14:45; Stop 02/23/18 at 14:50; Status DC Morphine Sulfate (Morphine Inj) 2 mg Q3H PRN IV PUSH pain >5; Start 02/22/18 at 18:30; Stop 02/22/18 at 19:35; Status DC Naloxone HCl (Narcan Inj) 0.4 mg UNSCH PRN IV PUSH SEE LABEL COMMENTS; Start at 18:30 Ondansetron HCl (Zofran Inj) 4 mg Q6H PRN IVP NAUSEA OR VOMITING; Start at 18:30 Sodium Bicarbonate (Sodium Bicarbonate) 650 mg QID PO Last administered on 02/24at 10:41; Start 02/22/18 at 21:00 Sodium Chloride 1,000 ml @ 100 mls/hr Q10H IV Last administered on 02/23/18at 16:55; Start 02/22/18 at 20:00 Sodium Chloride (NS Flush) 2 ml BID IV FLUSH Last administered on 02/22/18at 22: 50; Start 02/22/18 at 21:00 Tamsulosin HCl (Flomax) 0.4 mg HS PO Last administered on 02/23/18at 21:32; Start 02/22/18 at 21:00 Timolol Maleate (Timoptic 0.25% Opt Soln) 1 drop BID LEFT EYE Last administered on 02/24/18at 07:37; Start 02/22/18 at 21:00 Tranexamic Acid 1431 mg/Sodium Chloride 114.31 ml @ 200 mls/ hr UNSCH IV Last administered on 02/23/18at 14:50; Start 02/23/18 at 14:45; Stop 02/24/18 at 14:44 Vancomycin HCl (Vancomycin Inj) 500 mg ONCE ONCE IV ; Start 02/23/18 at 15:23; Stop 02/23/18 at 16:50; Status DC Verapamil HCl (Isoptin Sr) 120 mg DAILY PO Last administered on 02/24/18at 07: 32; Start 02/23/18 at 09:00 A/P Assessment and Plan A/P 1. Right hip fracture CT of the right lower extremity significant for mildly impacted right subcapital hip fracture s/p right hip hemiarthroplasty continue with pain management; will increase norco and continue to monitor. management per ortho. 2. Hypertension Continue home fosinopril, verapamil 3. Chronic kidney disease Monitor renal function 4. Hypothyroidism Continue home Synthroid DVT prophylaxis; subq Lovecucox Lee Alba MD Feb 24, 2018 11:25
[2018-02-24] MEDS: HYDROmorphone HCL PF 2 MG/ML VIAL IV PUSH PRN (15:13)
[2018-02-24] MEDS: ENOXAPARIN SODIUM 30 MG/0.3 ML SYRINGE SQ SCH (15:15)
[2018-02-24] MEDS: TAMSULOSIN HCL 0.4 MG CAP PO SCH (20:58)
[2018-02-24] MEDS: ATORVASTATIN 10 MG TAB PO SCH (20:58)
[2018-02-25] VITALS (9 sets, daily range): BP systolic 118–135; BP diastolic 62–84; PULSE 78–101; RESP 16–18; TEMP 97.1–97.9; O2SAT 96–99
[2018-02-25] MEDS: ACETAMINOPHEN/HYDROcodone 325 MG/7.5 MG TAB PO PRN ×5 (02:46→20:06)
--- NOTE | 2018-02-25 06:27 | PD.ORT.PN ---
Subjective Subjective Remarks POD 2 status post right hip hemiarthroplasty Doing well. reports out of bed with therapy. states pain improved. Objective Vitals Vital Signs Date Time Temp Pulse Resp B/P (MAP) Pulse Ox O2 Delivery O2 Flow Rate FiO2 02/25/18 04:00 101 02/25/18 03:24 97.9 82 18 130/74 (92) 97 02/25/18 00:36 79 02/24/18 23:18 97.4 80 18 130/69 (89) 97 02/24/18 20:08 77 02/24/18 20:00 97.8 76 18 128/73 (91) 99 02/24/18 16:00 97.6 85 18 134/61 (85) 95 02/24/18 15:43 18 02/24/18 14:45 18 02/24/18 12:00 97.7 87 18 140/79 (99) 98 02/24/18 08:32 18 02/24/18 08:00 98.0 84 18 121/69 (86) 96 I/O 02/24/18 02/24/18 02/24/18 02/25/18 02/25/18 02/25/18 07:00 15:00 23:00 07:00 15:00 23:00 Intake Total 360 ml 600 ml 480 ml Output Total 500 ml 600 ml 250 ml 250 ml Balance -140 ml 0 ml -250 ml 230 ml Intake Oral 360 ml 600 ml 480 ml Output Urine Total 500 ml 600 ml 250 ml 250 ml # Voids 2 # Bowel Movements 0 0 0 Result Diagram: 02/24/18 0430 02/23/18 0645 Imaging Last 24 hours Impressions Hip and Pelvis X-Ray 02/23/18 1441 Signed Impressions: Service Date/Time: Friday, February 23, 2018 16:18 - CONCLUSION: 1. Postoperative right total hip replacement. Normal alignment. Brian Lee MD Objective Remarks RLE: Dressings clean and dry. Intact. + knee brace. Full sensation distally with good extension of his ankle and toes. Assessment & Plan Assessment and Plan 1) Right Hip Hemiarthroplasty - POD 2 -WBAT -Posterior hip precautions -Knee brace while in bed -Daily dressing changes with Primapore on postop day 2 -Case management for rehab placement -DVT prophylaxis -Follow-up with Dr. Albarado or his PA in 2 weeks Shady Chand PA/Ore Roaster PA Feb 25, 2018 06:27
[2018-02-25] MEDS: LEVOTHYROXINE SODIUM 50 MCG TAB PO SCH (06:38)
[2018-02-25] MEDS: SODIUM BICARBONATE 650 MG TAB PO SCH ×4 (08:52→20:05)
[2018-02-25] MEDS: CHOLECALCIFEROL (VIT D3) 5000 UNIT CAP PO SCH (08:52)
[2018-02-25] MEDS: VERAPAMIL HCL 120 MG SUSTAINED RELEASE TAB PO SCH (08:53)
[2018-02-25] MEDS: TIMOLOL MALEATE 0.25% OPHT SOLN 5 ML BTL LEFT EYE SCH ×2 (08:53→20:04)
[2018-02-25] MEDS: LISINOPRIL 20 MG TAB PO SCH (08:53)
[2018-02-25] MEDS: SODIUM CHLORIDE 0.9% FLUSH 10 ML FLUSH IV FLUSH SCH ×2 (08:54→20:05)
--- NOTE | 2018-02-25 09:28 | HHI.PR ---
Subjective Remarks in no acute distress. pain seems to be fairly controlled. no new complaints. Objective Vitals Vital Signs Date Time Temp Pulse Resp B/P (MAP) Pulse Ox O2 Delivery O2 Flow Rate FiO2 02/25/18 08:00 97.5 85 18 135/84 (101) 96 02/25/18 04:00 101 02/25/18 03:24 97.9 82 18 130/74 (92) 97 02/25/18 00:36 79 02/24/18 23:18 97.4 80 18 130/69 (89) 97 02/24/18 20:08 77 02/24/18 20:00 97.8 76 18 128/73 (91) 99 02/24/18 16:00 97.6 85 18 134/61 (85) 95 02/24/18 15:43 18 02/24/18 14:45 18 02/24/18 12:00 97.7 87 18 140/79 (99) 98 I/O 02/24/18 02/24/18 02/24/18 02/25/18 02/25/18 02/25/18 07:00 15:00 23:00 07:00 15:00 23:00 Intake Total 360 ml 600 ml 480 ml Output Total 500 ml 600 ml 250 ml 250 ml Balance -140 ml 0 ml -250 ml 230 ml Intake Oral 360 ml 600 ml 480 ml Output Urine Total 500 ml 600 ml 250 ml 250 ml # Voids 2 # Bowel Movements 0 0 0 Result Diagram: 02/24/18 0430 02/23/18 0645 Imaging Last Impressions Hip and Pelvis X-Ray 02/23/18 1441 Signed Impressions: Service Date/Time: Friday, February 23, 2018 16:18 - CONCLUSION: 1. Postoperative right total hip replacement. Normal alignment. Brian Lee MD Lower Extremity CT 02/22/18 0000 Signed Impressions: Service Date/Time: Thursday, February 22, 2018 16:24 - CONCLUSION: Mildly impacted right subcapital hip fracture. There is a nondisplaced fracture through the lesser trochanter as well. Casper Lorenzana MD Chest X-Ray 02/22/18 0000 Signed Impressions: Service Date/Time: Thursday, February 22, 2018 15:26 - CONCLUSION: No acute disease. Small apparent retrocardiac hiatal hernia. Casper Lorenzana MD Objective Remarks GENERAL: This is a well-nourished, well-developed patient, in no apparent distress. CARDIOVASCULAR: Regular rate and regular rhythm without murmurs, gallops, or rubs. RESPIRATORY: Clear to auscultation. Breath sounds equal bilaterally. No wheezes , rales, or rhonchi. GASTROINTESTINAL: Abdomen soft, non-tender, nondistended. Normal, active bowel sounds MUSCULOSKELETAL: Extremities without clubbing, cyanosis, or edema. NEURO: Alert & Oriented x4 to person, place, time, situation. Moves all ext x4 Procedures right hip hemiarthroplasty Medications and IVs Inpatient Medications Acetaminophen/ Hydrocodone Bitart ([place] 7.5-325 Mg) 2 tab Q4HR PRN PO PAIN 3< 10 Last administered on 02/25/18at 06:38; Start 02/24/18 at 11:30 Atorvastatin Calcium (Lipitor) 10 mg HS PO Last administered on 02/24/18at 20:58 ; Start 02/22/18 at 21:00 Calcium Polycarbophil (Fiber Con) 625 mg DAILY PO Last administered on at 08:56; Start 02/23/18 at 09:00 Cefazolin Sodium (Ancef Inj) 2,000 mg ONCE ONCE IV Last administered on at 14:50; Start 02/23/18 at 15:23; Stop 02/23/18 at 15:24; Status DC Cefazolin Sodium 2000 mg/Sodium Chloride 120 ml @ 100 mls/hr Q6H IV Last administered on 02/24/18at 10:37; Start 02/23/18 at 22:00; Stop 02/24/18 at 11:11 ; Status DC Cefazolin Sodium/ Dextrose 50 ml @ 100 mls/hr Q6H IV ; Start 02/23/18 at 21:00 ; Stop 02/23/18 at 22:00; Status DC Cholecalciferol (Vitamin D3) 5,000 units DAILY PO Last administered on at 08:52; Start 02/24/18 at 09:00 Enoxaparin Sodium (Lovenox Inj) 30 mg Q24H SQ Last administered on 02/24/18at 15 :15; Start 02/24/18 at 15:00 Ergocalciferol (Drisdol) 50,000 units ONCE ONCE PO ; Start 02/23/18 at 14:45; Stop 02/23/18 at 14:49; Status DC Hydromorphone HCl (Dilaudid Pf Inj) 1 mg ONCE ONCE IV ; Start 02/23/18 at 16:10 ; Stop 02/23/18 at 16:45; Status DC Levothyroxine Sodium (Synthroid) 50 mcg DAILY@0600 PO Last administered on 02/25at 06:38; Start 02/23/18 at 06:00 Lisinopril (Prinivil) 20 mg DAILY PO Last administered on 02/25/18at 08:53; Start 02/23/18 at 09:00 Miscellaneous Information ALL NURSING DEPARTME... UNSCH PRN .XX SEE LABEL COMMENTS; Start 02/23/18 at 16:03; Stop 02/24/18 at 16:02; Status DC Miscellaneous Information (Post-op Orders (for Pharmacy)) STAT ONCE XX ; Start 02/23/18 at 14:45; Stop 02/23/18 at 14:50; Status DC Morphine Sulfate (Morphine Inj) 2 mg Q3H PRN IV PUSH pain >5; Start 02/22/18 at 18:30; Stop 02/22/18 at 19:35; Status DC Naloxone HCl (Narcan Inj) 0.4 mg UNSCH PRN IV PUSH SEE LABEL COMMENTS; Start at 18:30 Ondansetron HCl (Zofran Inj) 4 mg Q6H PRN IVP NAUSEA OR VOMITING; Start at 18:30 Sodium Bicarbonate (Sodium Bicarbonate) 650 mg QID PO Last administered on 02/25at 08:52; Start 02/22/18 at 21:00 Sodium Chloride 1,000 ml @ 100 mls/hr Q10H IV Last administered on 02/23/18at 16:55; Start 02/22/18 at 20:00; Status Future Hold Sodium Chloride (NS Flush) 2 ml BID IV FLUSH Last administered on 02/25/18at 08: 54; Start 02/22/18 at 21:00 Tamsulosin HCl (Flomax) 0.4 mg HS PO Last administered on 02/24/18at 20:58; Start 02/22/18 at 21:00 Timolol Maleate (Timoptic 0.25% Opth Soln) 1 drop BID LEFT EYE Last administered on 02/25/18at 08:53; Start 02/22/18 at 21:00 Tranexamic Acid 1431 mg/Sodium Chloride 114.31 ml @ 200 mls/ hr UNSCH IV Last administered on 02/23/18at 14:50; Start 02/23/18 at 14:45; Stop 02/24/18 at 14:44 ; Status DC Vancomycin HCl (Vancomycin Inj) 500 mg ONCE ONCE IV ; Start 02/23/18 at 15:23; Stop 02/23/18 at 16:50; Status DC Verapamil HCl (Isoptin Sr) 120 mg DAILY PO Last administered on 02/25/18at 08: 53; Start 02/23/18 at 09:00 A/P Assessment and Plan A/P 1. Right hip fracture CT of the right lower extremity significant for mildly impacted right subcapital hip fracture s/p right hip hemiarthroplasty continue with pain management. continue PT. management per ortho. 2. Hypertension Continue home fosinopril, verapamil 3. Chronic kidney disease Monitor renal function 4. Hypothyroidism Continue home Synthroid DVT prophylaxis; subq Lovenox Discharge Planning when cleared by ortho. Lee Alba MD Feb 25, 2018 09:28
--- NOTE | 2018-02-25 09:30 | HHI.FF ---
Face to Face Verification Diagnosis: (1) Closed right hip fracture Physical Therapy Order: Evaluate and Treat Home Health Nursing Order: Medical education Signs/symptoms of disease process Medication education-adverse effect Nursing assessment with vital signs I have seen patient Ridge Moreno on 02/25/18. My clinical findings support the need for the requested home health care services because: Ltd mobility - disease progression I certify that my clinical findings support that this patient is homebound because: Unsteady gait/balance Lee Alba MD Feb 25, 2018 09:30
[2018-02-25] MEDS: CALCIUM POLYCARBOPHIL 625 MG TAB PO SCH (10:45)
--- NOTE | 2018-02-25 12:42 | HHI.FF ---
Face to Face Verification Diagnosis: (1) Closed right hip fracture Physical Therapy Order: Evaluate and Treat Occupational Therapy Order: Evaluate and Treat Home Health Nursing Order: Signs/symptoms of disease process Nursing assessment with vital signs Home Health Aide Order: To Assist In: Bathing and personal care I have seen patient Ridge Moreno on 02/25/18. My clinical findings support the need for the requested home health care services because: Ltd mobility - disease progression I certify that my clinical findings support that this patient is homebound because: Unsteady gait/balance Lee Alba MD Feb 25, 2018 12:42
[2018-02-25] MEDS: ENOXAPARIN SODIUM 30 MG/0.3 ML SYRINGE SQ SCH (14:00)
[2018-02-25] MEDS: ATORVASTATIN 10 MG TAB PO SCH (20:05)
[2018-02-25] MEDS: TAMSULOSIN HCL 0.4 MG CAP PO SCH (20:05)
[2018-02-26] VITALS: PULSE 82
[2018-02-26] MEDS: ACETAMINOPHEN/HYDROcodone 325 MG/7.5 MG TAB PO PRN ×4 (00:47→12:58)
[2018-02-26 04:00] VITALS: PULSE 91
[2018-02-26 04:35] VITALS: BP 127/76; PULSE 99; RESP 18; TEMP 97.5; O2SAT 97
[2018-02-26] MEDS: LEVOTHYROXINE SODIUM 50 MCG TAB PO SCH (05:29)
--- NOTE | 2018-02-26 06:43 | PD.ORT.PN ---
Subjective Subjective Remarks POD 3 status post right hip hemiarthroplasty Doing well. reports out of bed with therapy. states pain improved. Objective Vitals Vital Signs Date Time Temp Pulse Resp B/P (MAP) Pulse Ox O2 Delivery O2 Flow Rate FiO2 02/26/18 04:35 97.5 99 18 127/76 (93) 97 02/26/18 04:00 91 02/26/18 00:00 82 02/25/18 23:20 97.5 90 18 124/70 (88) 97 02/25/18 20:00 82 02/25/18 18:20 97.2 82 18 119/62 (81) 97 02/25/18 16:35 18 02/25/18 16:00 97.1 78 16 118/65 (82) 99 02/25/18 12:00 97.6 81 18 128/73 (91) 96 02/25/18 08:00 97.5 85 18 135/84 (101) 96 I/O 02/25/18 02/25/18 02/25/18 02/26/18 02/26/18 02/26/18 07:00 15:00 23:00 07:00 15:00 23:00 Intake Total 480 ml 600 ml 740 ml Output Total 250 ml Balance 230 ml 600 ml 740 ml Intake Oral 480 ml 600 ml 740 ml Output Urine Total 250 ml # Voids 2 3 3 # Bowel Movements 0 0 0 Result Diagram: 02/24/18 0430 02/23/18 0645 Imaging Last 24 hours Impressions Hip and Pelvis X-Ray 02/23/18 1441 Signed Impressions: Service Date/Time: Friday, February 23, 2018 16:18 - CONCLUSION: 1. Postoperative right total hip replacement. Normal alignment. Brian Lee MD Objective Remarks RLE: Dressings clean and dry. Intact. + knee brace. Full sensation distally with good extension of his ankle and toes. Assessment & Plan Assessment and Plan 1) Right Hip Hemiarthroplasty - POD 3 -WBAT -Posterior hip precautions -Knee brace while in bed -Daily dressing changes with Primapore -Case management for rehab placement -DVT prophylaxis -ortho clear for DC -Follow-up with Dr. Albarado or his PA in 2 weeks Shady Chand/Furniture Sprayer PA Feb 26, 2018 06:43
--- NOTE | 2018-02-26 06:44 | HHI.FF ---
Face to Face Verification Diagnosis: (1) Closed right hip fracture Physical Therapy Gait training Hip: Total hip, Protocol: Right, Posterior hip precautions Canvas Knee Splint: Other (only while in bed) Right LE Weight Bearing: WB as tolerated Nursing Dressing Changes: Daily dressing change, Coverderm/Primapore I have seen patient Ridge Moreno on 02/26/18. My clinical findings support the need for the requested home health care services because: Ltd mobility - disease progression I certify that my clinical findings support that this patient is homebound because: Post-op weakness Shady Chand/Major Gifts Manager PA Feb 26, 2018 06:44
[2018-02-26 08:00] VITALS: BP 145/89; PULSE 126; RESP 18; TEMP 97.8; O2SAT 98
[2018-02-26] MEDS: VERAPAMIL HCL 120 MG SUSTAINED RELEASE TAB PO SCH (08:36)
[2018-02-26] MEDS: SODIUM BICARBONATE 650 MG TAB PO SCH ×2 (08:36→12:12)
[2018-02-26] MEDS: CHOLECALCIFEROL (VIT D3) 5000 UNIT CAP PO SCH (08:36)
[2018-02-26] MEDS: TIMOLOL MALEATE 0.25% OPHT SOLN 5 ML BTL LEFT EYE SCH (08:37)
[2018-02-26] MEDS: SODIUM CHLORIDE 0.9% FLUSH 10 ML FLUSH IV FLUSH SCH (08:37)
[2018-02-26] MEDS: LISINOPRIL 20 MG TAB PO SCH (08:37)
[2018-02-26] MEDS: CALCIUM POLYCARBOPHIL 625 MG TAB PO SCH (08:37)
--- NOTE | 2018-02-26 10:10 | HHI.PR ---
Subjective Remarks in no acute distress. pain is controlled. overall doing fine and hoping that he would go home today. d/w the PT at the bedside. Objective Vitals Vital Signs Date Time Temp Pulse Resp B/P (MAP) Pulse Ox O2 Delivery O2 Flow Rate FiO2 02/26/18 08:00 97.8 126 18 145/89 (107) 98 02/26/18 04:35 97.5 99 18 127/76 (93) 97 02/26/18 04:00 91 02/26/18 00:00 82 02/25/18 23:20 97.5 90 18 124/70 (88) 97 02/25/18 20:00 82 02/25/18 18:20 97.2 82 18 119/62 (81) 97 02/25/18 16:35 18 02/25/18 16:00 97.1 78 16 118/65 (82) 99 02/25/18 12:00 97.6 81 18 128/73 (91) 96 I/O 02/25/18 02/25/18 02/25/18 02/26/18 02/26/18 02/26/18 07:00 15:00 23:00 07:00 15:00 23:00 Intake Total 480 ml 600 ml 740 ml Output Total 250 ml Balance 230 ml 600 ml 740 ml Intake Oral 480 ml 600 ml 740 ml Output Urine Total 250 ml # Voids 2 3 3 # Bowel Movements 0 0 0 Result Diagram: 02/24/18 0430 02/23/18 0645 Imaging Last Impressions Hip and Pelvis X-Ray 02/23/18 1441 Signed Impressions: Service Date/Time: Friday, February 23, 2018 16:18 - CONCLUSION: 1. Postoperative right total hip replacement. Normal alignment. Brian Lee MD Lower Extremity CT 02/22/18 0000 Signed Impressions: Service Date/Time: Thursday, February 22, 2018 16:24 - CONCLUSION: Mildly impacted right subcapital hip fracture. There is a nondisplaced fracture through the lesser trochanter as well. Casper Lorenzana MD Chest X-Ray 02/22/18 0000 Signed Impressions: Service Date/Time: Thursday, February 22, 2018 15:26 - CONCLUSION: No acute disease. Small apparent retrocardiac hiatal hernia. Casper Lorenzana MD Objective Remarks GENERAL: This is a well-nourished, well-developed patient, in no apparent distress. CARDIOVASCULAR: Regular rate and regular rhythm without murmurs, gallops, or rubs. RESPIRATORY: Clear to auscultation. Breath sounds equal bilaterally. No wheezes , rales, or rhonchi. GASTROINTESTINAL: Abdomen soft, non-tender, nondistended. Normal, active bowel sounds MUSCULOSKELETAL: Extremities without clubbing, cyanosis, or edema. NEURO: Alert & Oriented x4 to person, place, time, situation. Moves all ext x4 Procedures right hip hemiarthroplasty Medications and IVs Inpatient Medications Acetaminophen/ Hydrocodone Bitart ([place] 7.5-325 Mg) 2 tab Q4HR PRN PO PAIN 3< 10 Last administered on 02/26/18 09:26; Start 02/24/18 at 11:30 Atorvastatin Calcium (Lipitor) 10 mg HS PO Last administered on 02/25/18at 20:05 ; Start 02/22/18 at 21:00 Calcium Polycarbophil (Fiber Con) 625 mg DAILY PO Last administered on at 08:37; Start 02/23/18 at 09:00 Cefazolin Sodium (Ancef Inj) 2,000 mg ONCE ONCE IV Last administered on at 14:50; Start 02/23/18 at 15:23; Stop 02/23/18 at 15:24; Status DC Cefazolin Sodium 2000 mg/Sodium Chloride 120 ml @ 100 mls/hr Q6H IV Last administered on 02/24/18at 10:37; Start 02/23/18 at 22:00; Stop 02/24/18 at 11:11 ; Status DC Cefazolin Sodium/ Dextrose 50 ml @ 100 mls/hr Q6H IV ; Start 02/23/18 at 21:00 ; Stop 02/23/18 at 22:00; Status DC Cholecalciferol (Vitamin D3) 5,000 units DAILY PO Last administered on at 08:36; Start 02/24/18 at 09:00 Enoxaparin Sodium (Lovenox Inj) 30 mg Q24H SQ Last administered on 02/25/18at 14 :00; Start 02/24/18 at 15:00 Ergocalciferol (Drisdol) 50,000 units ONCE ONCE PO ; Start 02/23/18 at 14:45; Stop 02/23/18 at 14:49; Status DC Hydromorphone HCl (Dilaudid Pf Inj) 1 mg ONCE ONCE IV ; Start 02/23/18 at 16:10 ; Stop 02/23/18 at 16:45; Status DC Levothyroxine Sodium (Synthroid) 50 mcg DAILY@0600 PO Last administered on 02/26at 05:29; Start 02/23/18 at 06:00 Lisinopril (Prinivil) 20 mg DAILY PO Last administered on 02/26/18at 08:37; Start 02/23/18 at 09:00 Miscellaneous Information ALL NURSING DEPARTME... UNSCH PRN .XX SEE LABEL COMMENTS; Start 02/23/18 at 16:03; Stop 02/24/18 at 16:02; Status DC Miscellaneous Information (Post-op Orders (for Pharmacy)) STAT ONCE XX ; Start 02/23/18 at 14:45; Stop 02/23/18 at 14:50; Status DC Morphine Sulfate (Morphine Inj) 2 mg Q3H PRN IV PUSH pain >5; Start 02/22/18 at 18:30; Stop 02/22/18 at 19:35; Status DC Naloxone HCl (Narcan Inj) 0.4 mg UNSCH PRN IV PUSH SEE LABEL COMMENTS; Start at 18:30 Ondansetron HCl (Zofran Inj) 4 mg Q6H PRN IVP NAUSEA OR VOMITING; Start at 18:30 Sodium Bicarbonate (Sodium Bicarbonate) 650 mg QID PO Last administered on 02/26at 08:36; Start 02/22/18 at 21:00 Sodium Chloride 1,000 ml @ 100 mls/hr Q10H IV Last administered on 02/23/18at 16:55; Start 02/22/18 at 20:00; Status Future Hold Sodium Chloride (NS Flush) 2 ml BID IV FLUSH Last administered on 02/26/18at 08: 37; Start 02/22/18 at 21:00 Tamsulosin HCl (Flomax) 0.4 mg HS PO Last administered on 02/25/18at 20:05; Start 02/22/18 at 21:00 Timolol Maleate ([place] 0.25% Opth Soln) 1 drop BID LEFT EYE Last administered on 02/26/18at 08:37; Start 02/22/18 at 21:00 Tranexamic Acid 1431 mg/Sodium Chloride 114.31 ml @ 200 mls/ hr UNSCH IV Last administered on 02/23/18at 14:50; Start 02/23/18 at 14:45; Stop 02/24/18 at 14:44 ; Status DC Vancomycin HCl (Vancomycin Inj) 500 mg ONCE ONCE IV ; Start 02/23/18 at 15:23; Stop 02/23/18 at 16:50; Status DC Verapamil HCl (Isoptin Sr) 120 mg DAILY PO Last administered on 02/26/18at 08: 36; Start 02/23/18 at 09:00 A/P Assessment and Plan A/P 1. Right hip fracture CT of the right lower extremity significant for mildly impacted right subcapital hip fracture s/p right hip hemiarthroplasty continue with pain management. continue PT. cleared by ortho for discharge. 2. Hypertension Continue home fosinopril, verapamil 3. Chronic kidney disease f/u as outpatient. 4. Hypothyroidism Continue home Synthroid DVT prophylaxis; subq Lovenox Discharge Planning rehab was offered but the patient declined and wants to go home. case management consulted for [facility]. see med list. f/u; pcp and ortho. d/w the patient, case management. time spent 35 min. Lee Alba MD Feb 26, 2018 10:10
[2018-02-26] MEDS ORDERED: ASPI81TA16 PO (10:12)
--- NOTE | 2018-02-26 10:13 | HHI.DS ---
Discharge Summary Admission Date Feb 22, 2018 at 18:29 Discharge Date: Feb 26, 2018 Admitting Diagnosis right hip fx (1) Hip fracture, right ICD Code: S72.001A - Fracture of unspecified part of neck of right femur, initial encounter for closed fracture Diagnosis: Principal Procedures right hip hemiarthroplasty Brief History - From Admission 42-year-old male with a past medical history significant for hypertension, chronic kidney disease and BPH presents to the emergency department for evaluation of a fall. Approximately 10 days ago he was helping his , who has muscular dystrophy, get out of bed when he fell while attempting to move her onto his right hip, knee and arm. The patient reports that his right knee and right arm are doing much better however he still has significant pain in his right hip. Patient was seen by his primary care provider today who sent him for outpatient x-rays which were positive for right hip fracture. He was sent to the emergency department for further evaluation. Currently he complains of significant right hip pain. Denies any chest pain or shortness of breath. No nausea/vomiting/diarrhea. No abdominal pain. Patient has bilateral lower extremity pitting edema which she has had for approximately the past 2-3 months and has had outpatient workup for. He reports the edema is worse than normal because he has not been able to lie flat for the past 10 days. CBC/BMP: 02/24/18 0430 02/23/18 0645 Significant Findings Laboratory Tests Test 02/24/18 04:30 Hemoglobin 10.7 GM/DL (13.0-17.0) Hematocrit 31.4 % (39.0-51.0) Imaging Last Impressions Hip and Pelvis X-Ray 02/23/18 1441 Signed Impressions: Service Date/Time: Friday, February 23, 2018 16:18 - CONCLUSION: 1. Postoperative right total hip replacement. Normal alignment. Brian Lee MD Lower Extremity CT 02/22/18 0000 Signed Impressions: Service Date/Time: Thursday, February 22, 2018 16:24 - CONCLUSION: Mildly impacted right subcapital hip fracture. There is a nondisplaced fracture through the lesser trochanter as well. Casper Lorenzana MD Chest X-Ray 02/22/18 0000 Signed Impressions: Service Date/Time: Thursday, February 22, 2018 15:26 - CONCLUSION: No acute disease. Small apparent retrocardiac hiatal hernia. Casper Lorenzana MD PE at Discharge GENERAL: This is a well-nourished, well-developed patient, in no apparent distress. CARDIOVASCULAR: Regular rate and regular rhythm without murmurs, gallops, or rubs. RESPIRATORY: Clear to auscultation. Breath sounds equal bilaterally. No wheezes , rales, or rhonchi. GASTROINTESTINAL: Abdomen soft, non-tender, nondistended. Normal, active bowel sounds MUSCULOSKELETAL: Extremities without clubbing, cyanosis, or edema. NEURO: Alert & Oriented x4 to person, place, time, situation. Moves all ext x4 Hospital Course 1. Right hip fracture CT of the right lower extremity significant for mildly impacted right subcapital hip fracture s/p right hip hemiarthroplasty continue with pain management. continue PT. cleared by ortho for discharge. 2. Hypertension Continue home fosinopril, verapamil 3. Chronic kidney disease f/u as outpatient. 4. Hypothyroidism Continue home Synthroid Pt Condition on Discharge: Fair Discharge Disposition: Disch w/ Home Health Serv Discharge Time: > 30 minutes Discharge Instructions DIET: Follow Instructions for: Heart Healthy Diet Activities you can perform: Regular-No Restrictions Other Activity Instructions: WBAT -Posterior hip precautions -Knee brace while in bed -Daily dressing changes with Lee Orantes MD Feb 26, 2018 10:12
[2018-02-26] MEDS ORDERED: LACTULOSE SYRUP 20 GM/30 ML CUP PO ONE (11:15)
[2018-02-26 12:00] VITALS: BP 116/76; PULSE 95; RESP 18; TEMP 97.6; O2SAT 86
[2018-02-26] MEDS: ENOXAPARIN SODIUM 30 MG/0.3 ML SYRINGE SQ SCH (15:33)
== END 2018-02-26 16:39 | disposition home health service (06) | DRG 470 ==
LOC: NED 14:44 → NEDA 18:29 → N07A 20:35 → N06B 02-23 16:59 → N06A 02-23 18:24
PROVIDERS: ADMIT Internal Medicine; ATTEND Internal Medicine
PROC: 0SRR0JA Replacement of Right Hip Joint, Femoral Surface with Synthetic Substitute, Uncemented, Open Approach (ICD-10-PCS; principal; 2018-02-23 14:27)
DX: S72.011A Unspecified intracapsular fracture of right femur, initial encounter for closed fracture (principal); S72.124A Nondisplaced fracture of lesser trochanter of right femur, initial encounter for closed fracture; I12.9 Hypertensive chronic kidney disease with stage 1 through stage 4 chronic kidney disease, or unspecified chronic kidney disease; N40.0 Benign prostatic hyperplasia without lower urinary tract symptoms; M85.80 Other specified disorders of bone density and structure, unspecified site; E03.9 Hypothyroidism, unspecified; R60.0 Localized edema; N18.9 Chronic kidney disease, unspecified; W18.30XA Fall on same level, unspecified, initial encounter; Y93.F9 Activity, other caregiving; Z79.82 Long term (current) use of aspirin
CPT/HCPCS: 71046; 73502; 73700; 80048; 80053; 82306; 85014; 85018; 85025; 85610; 85730; 93005; 96374; 96375; 96376; C1776; J0690; J1100; J1170; J1580; J1650; J2175; J2250; J2270; J2405; J2550; J2710; J3010; J3370; J7030; J7050; J7120; L1830